=== PATIENT | female | born 1990 | race Caucasian/White ===

== ENCOUNTER → 2022-11-19 08:24 | Outpatient (BNVA) | payer OTHER, SELFPAY | PROVIDERS: PCP Nurse Practitioner Family; Visit Provider Physician Assistant Surgical ==

== ENCOUNTER → 2023-01-02 08:24 | Outpatient (BNVA) | payer OTHER, SELFPAY | PROVIDERS: PCP Nurse Practitioner Family; Visit Provider Physician Assistant Surgical ==

== ENCOUNTER → 2023-04-26 08:01 | Outpatient (BNVA) | payer OTHER, SELFPAY | PROVIDERS: PCP Nurse Practitioner Family; Visit Provider Surgery ==

== ENCOUNTER → 2023-04-29 07:59 | Outpatient (BNVA) | payer OTHER, SELFPAY | PROVIDERS: PCP Nurse Practitioner Family; Visit Provider Surgery ==

== ENCOUNTER → 2023-05-15 09:19 | Outpatient (BNVA) | payer OTHER, SELFPAY | PROVIDERS: PCP Nurse Practitioner Family; Visit Provider Physician Assistant Surgical ==

== ENCOUNTER → 2023-05-22 15:11 | Outpatient (BNVA) | payer OTHER, SELFPAY | PROVIDERS: PCP Nurse Practitioner Family; Visit Provider Physician Assistant Surgical ==

== ENCOUNTER → 2023-05-28 12:12 | Outpatient (BNVA) | payer OTHER, SELFPAY | PROVIDERS: PCP Nurse Practitioner Family; Visit Provider Physician Assistant Surgical ==

== ENCOUNTER → 2023-06-04 12:17 | Outpatient (BNVA) | payer OTHER, SELFPAY | PROVIDERS: PCP Nurse Practitioner Family; Visit Provider Physician Assistant Surgical ==

== ENCOUNTER → 2023-06-18 14:14 | Outpatient (BNVA) | payer OTHER, SELFPAY | PROVIDERS: PCP Nurse Practitioner Family; Visit Provider Physician Assistant Surgical ==

== ENCOUNTER → 2023-08-12 12:48 | Outpatient (BNVA) | payer OTHER, SELFPAY | PROVIDERS: PCP Nurse Practitioner Family; Visit Provider Physician Assistant Surgical ==

== ENCOUNTER → 2023-11-07 09:54 | Outpatient (BNVA) | payer OTHER, SELFPAY | PROVIDERS: PCP Nurse Practitioner Family; Visit Provider Physician Assistant Surgical ==

== ENCOUNTER 2024-11-09 09:28 | Outpatient (AMB) | payer OTHER, SELFPAY ==
--- NOTE | 2024-11-09 09:34 | A.OFFVIS_ITS ---
VS Expanded 11/09/24 09:45 BP 114/66 Blood Pressure Location Rt brachial Blood Pressure Position Sitting Pulse 71 Pulse Source Pulse Oximeter Temp 96.8 F Temperature Source Temporal Artery Scan Pulse Oximetry 98 Oxygen Delivery Method Room Air Height 5 ft 2 in Weight 170 lb 12.8 oz BMI 31.2 Body Fat % 38.0 Body Fat Mass 64.8 Fat Free Mass 105.8 Visceral Fat Rating 7.0 Body Water % 44.6 Body Water Mass 6.0 Muscle Mass/Score 100.6 Basal Metabolic Rate/Score 1,484 Intake Visit Reasons: (OV) PO LSG 11/09/21 Allergies oxycodone Allergy (Mild, Verified 11/09/24 09:46) Rash transparent dressing [Tegaderm] Allergy (Mild, Verified 11/09/24 09:46) Rash Medication List - Last Reconciled 11/09/24 by MELVI Monsivais levothyroxine 25 mcg PO DAILY multivitamin 1 tab PO DAILY HPI Comments Details: This is a 32 yo female who is s/p LSG 11/09/2021. Presents for 3 year post op visit. Weight gain of 11.2 lbs since last OV 1yr ago. No complaints of nausea, emesis, abdominal pain or reflux, or constipation. Present meal plan includes: given at last visit by RD 1 scoop in almond milk= 15g protein x 2 shakes 1 bar - Zone Perfect- doing fewer of these since ZP was discontinued, now will have urdu yogurt with granola meal - protein and veg takes MVI Exercise routine includes: joined [employer] for 5-7x week Did the patient ever have any of these conditions and are they resolved or still being treated? GERD: resolved- only when triggered FRANCINE: never DM: never HTN: never Hyperlipidemia: never Post op complications: none Have you been diagnosed with reflux (GERD)? no Score 0-5: 0=no symptoms, 1=noticeable but not bothersome (slight or occasional), 2=noticeable, bothersome but not daily, 3=bothersome and daily, 4=affects daily activities, 5=incapacitating, unable to do daily activities How bad is the heartburn: 3 Heartburn when lying down: 3 Heartburn when standing up: 1 Heartburn after meals: 1 Does heartburn change your diet: 2 Does heartburn wake you up from sleep: 0 Do you have difficulty swallowin Do you have pain with swallowin If you take medication for reflux, does this affect your daily life: 0 Total score: 10 [facility] Medical History (Updated 09/16/24 @ 13:33 by Korin Bennett) Liver fibrosis Steatosis, liver BMI 36.0-36.9,adult IUD (intrauterine device) in place BMI 37.0-37.9, adult BMI 39.0-39.9,adult Hypothyroidism Back pain Morbid obesity Surgical History S/P panniculectomy History of sleeve gastrectomy History of facial surgery Hx of section History of wisdom tooth extraction, class I edentulism Family History Mother Thyroid condition Obesity Anxiety Depression Father No problems noted. Sister No problems noted. Son No problems noted. Social History Are you a primary critical care technician to a significant other at home: No Do you presently have visiting nurse or other home services: No Alcohol intake: current Alcohol intake frequency: a few times a week Patient Tobacco Use Status: Former Tobacco user Tobacco use type: Cigarette Years Smoked: <5 service: No Current occupational status: employed Physical Exam Vital Signs: Last Vital Signs Temp 96.8 F 11/09/24 09:45 Pulse 71 11/09/24 09:45 BP 114/66 11/09/24 09:45 Pulse Ox 98 11/09/24 09:45 Oxygen Delivery Method Room Air 11/09/24 09:45 BMI result Body Mass Index 31.2 Assessment & Plan Assessment & Plan (1) S/P panniculectomy: Comment: 05/09/23 Code(s): Z98.890 - Other specified postprocedural states Category: Surgical (2) S/P laparoscopic sleeve gastrectomy: Code(s): Z98.84 - Bariatric surgery status Category: Surgical (3) Obesity: Code(s): E66.9 - Obesity, unspecified Category: Medical Plan Pt is satisfied with current weight, meal plan and exercise regimen. Discussed that she should check weight at least monthly to make sure she does not continue to gain (she was trying to avoid checking weight frequently). Labs ordered. She wants to return in 1 year but will call office for sooner appt if she would like to be seen earlier than 1 year. Orders: Orders Complete Blood Count Auto Diff Today K91.2 - Postsurgical malabsorption, not elsewhere classified, Z90.3 - Acquired absence of stomach [part of], Z98.84 - Bariatric surgery status Lipid Panel Today K91.2 - Postsurgical malabsorption, not elsewhere classified, Z90.3 - Acquired absence of stomach [part of], Z98.84 - Bariatric surgery status Vitamin B12 and Folate Today K91.2 - Postsurgical malabsorption, not elsewhere classified, Z90.3 - Acquired absence of stomach [part of], Z98.84 - Bariatric surgery status Vitamin A Today K91.2 - Postsurgical malabsorption, not elsewhere classified, Z 90.3 - Acquired absence of stomach [part of], Z98.84 - Bariatric surgery status TSH reflex Free T4 Today K91.2 - Postsurgical malabsorption, not elsewhere classified, Z90.3 - Acquired absence of stomach [part of], Z98.84 - Bariatric surgery status Ferritin Today K91.2 - Postsurgical malabsorption, not elsewhere classified, Z90.3 - Acquired absence of stomach [part of], Z98.84 - Bariatric surgery status Vitamin D 25-OH Total Today K91.2 - Postsurgical malabsorption, not elsewhere classified, Z90.3 - Acquired absence of stomach [part of], Z98.84 - Bariatric surgery status Insulin Today K91.2 - Postsurgical malabsorption, not elsewhere classified, Z90.3 - Acquired absence of stomach [part of], Z98.84 - Bariatric surgery status Hemoglobin A1c Today K91.2 - Postsurgical malabsorption, not elsewhere classified, Z90.3 - Acquired absence of stomach [part of], Z98.84 - Bariatric surgery status IRON PROFILE Today K91.2 - Postsurgical malabsorption, not elsewhere classified, Z90.3 - Acquired absence of stomach [part of], Z98.84 - Bariatric surgery status Comprehensive Met. Panel Today K91.2 - Postsurgical malabsorption, not elsewhere classified, Z90.3 - Acquired absence of stomach [part of], Z98.84 - Ba riatric surgery status Zinc Today K91.2 - Postsurgical malabsorption, not elsewhere classified, Z90.3 - Acquired absence of stomach [part of], Z98.84 - Bariatric surgery status C Reactive Protein Today K91.2 - Postsurgical malabsorption, not elsewhere classified, Z90.3 - Acquired absence of stomach [part of], Z98.84 - Bariatric surgery status Vitamin B1 Today K91.2 - Postsurgical malabsorption, not elsewhere classified, Z90.3 - Acquired absence of stomach [part of], Z98.84 - Bariatric surgery status
[2024-11-09 09:45] VITALS: BP 114/66; PULSE 71; TEMP 36; O2SAT 98; BMI 31.2
== END 2024-11-09 10:18 | disposition home or self-care (01) ==
PROVIDERS: Visit Provider Physician Assistant Surgical
DX: E66.9 Obesity, unspecified (principal); Z68.31 Body mass index [BMI] 31.0-31.9, adult; Z98.84 Bariatric surgery status
CPT/HCPCS: 99214

== ENCOUNTER → 2024-11-09 09:28 | Outpatient (BNVA) | payer OTHER, SELFPAY | PROVIDERS: Visit Provider Physician Assistant Surgical ==